=== PATIENT | male | born 1985 | race Caucasian/White ===

== ENCOUNTER 2022-01-08 16:00 | Outpatient (RCR) | payer BC, SELFPAY ==
--- NOTE | 2021-12-13 17:25 | OT.OPODN ---
OT Outpatient Ortho Daily Note OT Outpatient Ortho Daily Note Start: 11/22/21 14:08 Freq: Status: Active Protocol: Document 12/13/21 17:11 LCN (Rec: 12/13/21 17:25 LCN Desktop) E-Signed By Candida Iyer, OTR/L, CLT Type of Note Type of Note Type of Note Daily Note Visit Number 4 Insurance Information Insurance Information [employer] Outpatient History/Precautions Current Condition/Medical Diagnosis Treatment Diagnosis TFCC sprain, L ECU tendonitis Date of Onset 10/01/21 Ortho Subjective Subjective Subjective Tender at TFCC with twisting in supination /pronation end ROM, holding babies during feeding. Can bear weight into palms with dynamic movements without increased pain. Wrist wrap is still helpful. 30-45 minutes of tool use with 3-4/10 TFCC pain for 30-60 min after. Pt struck counter top with L fist out of anger, sustaining L wrist TFCC injury, ECU tendonitis. OT OP Daily Ortho Note/Assessment Therapeutic Exercise Therapeutic Exercise Minutes (minutes) 16 Therapeutic Exercise Comments Reviewed HEP with WR EX, FL, RD, UD w orange band x 10 reps each, 3 sec holds/slow lower for building wrist stability. Cautioned to not do planes that make him tender . Added Weightbearing/weight shifting in 4 pts A/P and lateral 25/75, 50/50, 72/25 shifting x 20 reps?both planes . CW and CCW circles, 4 inch knee based push ups; well tolerated.?Added hammer turns and UD/RD with 16 oz, slow controlled w slight cocontraction movements, avoiding tender point at 95 supination ( guided to stay inside of tender arc). Gross digit extension + wrist extension w 10# rubber band x 5 sec holds x 10 reps. Upper Extremity Function Upper Extremity Function Comments HEP 12/13/21--Gross digit extension + wrist extension w 10# rubber band x 5 sec holds x 10 reps. hammer turns and UD/RD with 16 oz, slow controlled w slight cocontraction movements. Weightbearing/ weight shifting in 4 pts A/P and lateral, micro pushups. 11/29/21--WR EX, FL, RD, UD w orange band x 10 reps each, 3 sec holds/slow lower Ultrasound Ultrasound Location & Joint Position L TFCC in pronated position Ultrasound Frequency & Mode 1 MHz Pulsed Intensity (w/cm2) 1.7 Ultrasound Duration 8 Minutes Ultrasound Comments as needed to support reduction of edema for tissue healing and improved tissue as needed to support reduction of edema for tissue healing and improved tissue mobility Manual Therapy Manual Therapy 10 min IASTM with Graston #6 for ditstal ECU, TFCC margins , extensors relatively smooth, more gritty over TFCC and ECU, FCU. Education Provided Disease Process Teaching Recipient Patient Education Comments Goal of therapy- reduce pain, support healing in prep for strengthening later. Edema Assessment Additional Information Comments HEP 11/29/21-- WR EX, FL, RD, UD w orange band x 10 reps each, 3 sec holds/slow lower OT Objective Data Hand Hand Function 12/13/21--Licensing Manager improved to 95# R and 95# L, no pain. Atkinson pinch is 19.5#R and 17.5 L ( no pain). 3 pt is 22#R and 22 #L ( no pain). Ballotment seems more balanced between L and R, non provocative. From EVAL 11/13/21-- MMT for WR EX, FL RD, UD, supination and pronation oare non painful , 5/5. WNL AROM for L wrist planes: WR EX 75 of 75. WR FL 90 of 90. RRD 30 of 30. UD 40/40. Supination/ Pronation WNL. Tender at L TFCC with shallow push up/weightbearing into table top. Licensing Manager is 100# R and 105# L <1/ 10 pressure at TFCC Atkinson pinch is 21# R aand 20# L ( 1/10 pain at L TFCC) 3 pt is 22#R and 20.% with 1/ 10 tender at TFCC). Improves to 23# with kinesotaping in place, no pain . Pt states that repeated gripping and pinching, tool use for 30-45 minutes at a time wis where he gets more sore to 3-4/10. Edema -- 1 cm pocket of fibrous change at the TFCC. Has full contact center consultant closure and no signs of digital edema. Ballottement test: mild laxity, mild tenderness during testing at DRUJ. DRUJ compression non tender. OT Problems Problems Patient Potential Excellent Assessment Assessment Assessment Pt tolerated stengthening well , needs cues to slow down, move getnly. OT Outpatient Treatment Plan Ortho Plan Expected Frequency 1-2x Week Expected Duration 6-8 Weeks Treatment Plan Evaluation,Edema Control,Joint Mobilization,Manual Therapy, Splinting,Other Other Treatment Plan Ultrasound Occupational Therapy Treatment Plan - OP Potential Rehabilitation Potential Excellent Goals Goals In 8 weeks, Enrique will demonstrate improved-- 1) No pain with contact center consultant, pinch testing at 110# Licensing Manager and 24# pinch with or without veclro compression splinting of DRUJ. 2) I HEP for self kinesiotaping,edema mamangement, self IASTM and dynamic wrist stability. 3) dynamic endurance with L wrist to 2 sets of 1 hour intervals during home management tasks, tool use and fitness activities. Treatment Plan Other Treatment Plan Ultrasound Expected Frequency 1-2x Week Expected Duration 6-8 Weeks Comment Summary PLAN--Cont ultrasound and IASTM. Continue focus on dynamic wrist stabilization isometric towel pulls UD/RD and oscillations. Occupational Therapy Billing Units Billing Units Manual Therapy 1 Self Care/Home Management 0 Therapeutic Exercise 1 Ultrasound 1
== END 2022-03-09 09:35 | disposition home or self-care (01) ==
PROVIDERS: Visit Provider Family Medicine
DX: Z51.89 Encounter for other specified aftercare (principal); M25.532 Pain in left wrist; M65.841 Other synovitis and tenosynovitis, right hand; S63.92XD Sprain of unspecified part of left wrist and hand, subsequent encounter
CPT/HCPCS: 97033; 97035; 97110; 97140; 97535; X5282